=== PATIENT | male | born 1980 | race Caucasian/White ===

== ENCOUNTER 2021-04-25 14:56 | Emergency (ER) | payer OTHER, SELFPAY ==
[~2021-04-25] VITALS: Ht 180.3 cm; Wt 77.5 kg
[2021-04-25 14:57] VITALS: BP 132/77
[2021-04-25] MEDS ORDERED: TRAM100T21 PO (16:06)
== END 2021-04-25 16:21 | disposition home or self-care (01) ==
LOC: M ED 14:56
DX: Z76.0 Encounter for issue of repeat prescription (principal); M54.9 Dorsalgia, unspecified